=== PATIENT | male | born 1995 | race Caucasian/White ===

== ENCOUNTER 2020-11-30 08:59 | Emergency (ER) | payer OTHER ==
[~2020-11-30] VITALS: Ht 172.7 cm; Wt 72.6 kg
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
[2020-11-30 09:38] VITALS: BP 123/76
== END 2020-11-30 09:50 | disposition home or self-care (01) ==
LOC: ER 08:59
DX: Z04.1 Encounter for examination and observation following transport accident (principal); R42 Dizziness and giddiness; V49.88XA Car occupant (driver) (passenger) injured in other specified transport accidents, initial encounter; Y93.89 Activity, other specified; Y92.413 State road as the place of occurrence of the external cause; Y99.9 Unspecified external cause status